=== PATIENT | male | born 1975 | race Caucasian/White ===

== ENCOUNTER 2018-06-07 09:45 | Inpatient (IN) | payer OTHER ==
[2018-06-07 10:15] VITALS: BMI 27.2
--- NOTE | 2018-06-07 10:55 | HP ---
CIWA Score Nausea/Vomitin Muscle Tremors: 2 Anxiety: 2 Agitation: 2 Paroxysmal Sweats: 1-Minimal Palms Moist Orientation: 0-Oriented Tacttile Disturbances: 1-Very Mild Itch/Numbness Auditory Disturbances: 1-Very Mild Visual Disturbances: 0-None Headache: 2-Mild CIWA-Ar Total Score: 13 - Admission Criteria [facility] Guidelines: Admission for Medically Managed Detox: Requires at least one of the followin. CIWA greater than 12 2. Seizures within the past 24 hours 3. Delirium tremens within the past 24 hours 4. Hallucinations within the past 24 hours 5. Acute intervention needed for co occurring medical disorder 6. Acute intervention needed for co occurring psychiatric disorder 7. Severe withdrawal that cannot be handled at a lower level of care (continued vomiting, continued diarrhea, abnormal vital signs) requiring intravenous medication and/or fluids 8. Patient presents the following: CIWA greater than 12 Admission Criteria Met: Admission criteria met Admission ROS [facility] - HPI Chief Complaint: i need help to stop drinking alcohol,xanax,cocaine,marijuana and crystal meth Allergies/Adverse Reactions: Allergies Allergy/AdvReac Type Severity Reaction Status Date / Time No Known Allergies Allergy Verified 06/07/18 11:16 History of Present Illness: this 43 years old male with alcohol,xanax,cocaine,marijuana,crystal meth dependence,seeking detox,withdrawal symptom,last treatment [facility] seen in [facility] last night syncope asthma nicotine dependence longest period of sobriety 5 months paln to go to rehab after detox Exam Limitations: No Limitations - Ebola screening Have you traveled outside of the country in the last 21 days: No (N) Have you had contact with anyone from an Ebola affected area: No Have you been sick,other than usual withdrawal symptoms: No Do you have a fever: No - Review of Systems Constitutional: Loss of Appetite, Malaise, Night Sweats, Changes in sleep, Weakness, Unintentional Wgt. Loss EENT: reports: Nose Congestion Respiratory: reports: No Symptoms reported, Other (asthm aon albuterol inhaler) Cardiac: reports: No Symptoms Reported GI: reports: Nausea, Poor Appetite, Indigestion, Abdominal cramping : reports: No Symptoms Reported Musculoskeletal: reports: Back Pain, Muscle Pain Integumentary: reports: Dryness Neuro: reports: Headache, Tremors Endocrine: reports: No Symptoms Reported Hematology: reports: No Symptoms Reported Psychiatric: reports: No Sypmtoms Reported, Judgement Intact, Mood/Affect Appropiate, Orientated x3 Patient History - Patient Medical History Hx Anemia: No Hx Asthma: Yes (on albuterol inhaler) Hx Chronic Obstructive Pulmonary Disease (COPD): No Hx Cancer: No Hx Cardiac Disorders: No Hx Congestive Heart Failure: No Hx Hypertension: No Hx Hypercholesterolemia: No Hx Pacemaker: No HX Cerebrovascular Accident: No Hx Seizures: No Hx Dementia: No Hx Diabetes: No Hx Gastrointestinal Disorders: No Hx Liver Disease: No Hx Genitourinary Disorders: No Hx Sexually Transmitted Disorders: No Hx Renal Disease (ESRD): No Hx Thyroid Disease: No Hx Human Immunodeficiency Virus (HIV): No (last 2017 negative) Hx Hepatitis C: No Hx Depression: No Hx Suicide Attempt: No Hx Bipolar Disorder: No Hx Schizophrenia: No - Patient Surgical History Past Surgical History: Yes - PPD History Previous Implant?: Yes Documented Results: Negative w/o proof Implanted On Prior [facility] Admission?: No PPD to be Administered?: Yes - Smoking Cessation Smoking history: Current every day smoker Have you smoked in the past 12 months: Yes Cigars Per Day: 20 Hx Chewing Tobacco Use: No Initiated information on smoking cessation: Yes 'Breaking Loose' booklet given: 06/07/18 - Substance & Tx. History Hx Alcohol Use: Yes Hx Substance Use: Yes Substance Use Type: Alcohol, Cocaine, Marijuana, Tranquilizers Hx Substance Use Treatment: Yes (rehab 2015 [facility]) - Substances Abused Alcohol Route: Oral Frequency: Daily Amount used: 1 pint of vodka,bacardi/6 packs of 12 ozs of beer Age of first use: 12 Date of Last Use: 06/06/18 Alprazolam (Xanax) Route: Oral Frequency: Daily Amount used: 6 mgs Age of first use: 33 Date of Last Use: 06/04/18 Cocaine Route: Smoking Frequency: 3-6 times per week Amount used: 100$ Age of first use: 19 Date of Last Use: 06/06/18 Marijuana/Hashish Route: Smoking Frequency: Daily Amount used: 40$ Age of first use: 23 Date of Last Use: 06/06/18 crstal meth Route: Smoking Frequency: Daily Amount used: 90$ Age of first use: 41 Date of Last Use: 06/06/18 Family Disease History - Family Disease History Family History: Denies Admission Physical Exam [facility] - Vital Signs Vital Signs: Vital Signs - 24 hr 06/07/18 10:06 Temperature 99.2 F Pulse Rate 93 H Respiratory 20 Rate Blood Pressure 108/80 - Physical General Appearance: Yes: Moderate Distress, Tremorous, Irritable, Sweating, Anxious HEENTM: Yes: Normal ENT Inspection, JOHN PAUL, Pharynx Normal Respiratory: Yes: Lungs Clear, Normal Breath Sounds, No Respiratory Distress Neck: Yes: Within Normal Limits, Supple, Trachea in good position Breast: Yes: Within Normal Limits Cardiology: Yes: Within Normal Limits, Regular Rhythm, Regular Rate, S1, S2 Abdominal: Yes: Normal Bowel Sounds, Non Tender, Flat, Soft, Organomegaly Genitourinary: Yes: Within Normal Limits Back: Yes: Muscle Spasm Musculoskeletal: Yes: Back pain, Muscle Pain Extremities: Yes: Within Normal Limits, Tremors Neurological: Yes: outsewer II-XII NML intact, Fully Oriented, Alert, Motor Strength 5/5 Integumentary: Yes: Dry Lymphatic: Yes: Within Normal Limits - Diagnostic (1) Alcohol dependence with uncomplicated withdrawal Current Visit: Yes Status: Acute (2) Uncomplicated sedative, hypnotic or anxiolytic withdrawal Current Visit: Yes Status: Acute (3) Cocaine dependence Current Visit: Yes Status: Chronic (4) Cannabis dependence Current Visit: Yes Status: Chronic (5) Methamphetamine dependence Current Visit: Yes Status: Chronic (6) Asthma Current Visit: Yes Status: Acute (7) Syncope Current Visit: Yes Status: Acute (8) Weight loss Current Visit: Yes Status: Acute (9) Insomnia secondary to depression with anxiety Current Visit: Yes Status: Acute Cleared for Admission [facility] - Detox or Rehab [facility] Level of Care: Medically Managed Detox Regimen/Protocol: Valium [facility] Breath Alcohol Content Breath Alcohol Content: 0 Urine Drug Screen - Results Drug Screen Negative: No Urine Drug Screen Results: THC-Marijuana, KIMBERLY-Cocaine, AMP-Amphetamines, MET- Methamphetamine, BZO-Benzodiazepines
[2018-06-07] MEDS ORDERED: MAGNESIUM HYDROX 2400MG/30ML ORAL SUSPENSION 30 ML CUP PO PRN (11:14)
[2018-06-07] MEDS ORDERED: MAG HYDROX/AL HYDROX/SIMETH 30 ML UNIT-DOSE CUP PO PRN (11:14)
[2018-06-07] MEDS ORDERED: ACETAMINOPHEN 325 MG TABLET (FP) PO PRN (11:14)
[2018-06-07] MEDS ORDERED: guaiFENesin/D-METHORPHAN HB 10 ML UNIT-DOSE CUPS PO PRN (11:14)
[2018-06-07] MEDS ORDERED: P-EPHED 60MG/TRIPROLIDI 2.5MG TABLET PO PRN (11:14)
[2018-06-07] MEDS ORDERED: MENTHOL/PHENOL 1 EACH UD MM PRN (11:14)
[2018-06-07] MEDS ORDERED: MAGNESIUM CITRATE 300 ML BOTTLE PO PRN (11:14)
[2018-06-07] MEDS ORDERED: NICOTINE POLACRILEX 2 MG GUM BUC PRN (11:14)
[2018-06-07] MEDS ORDERED: LOPERAMIDE HCL 2 MG CAPSULE PO PRN (11:14)
[2018-06-07] MEDS ORDERED: hydrOXYzine PAMOATE 50 MG CAPSULE (FP) PO PRN (11:14)
[2018-06-07] MEDS ORDERED: IBUPROFEN 400 MG TABLET (FP) PO PRN (11:14)
[2018-06-07] MEDS ORDERED: ALBUTEROL SO4 8 GM HFA INHALER IH PRN (11:51)
[2018-06-07] MEDS ORDERED: diazePAM 5 MG TABLET PO ONE (12:10)
[2018-06-07] MEDS: NICOTINE 21 MG/24 HOURS TOPICAL PATCH TD SCH (12:26)
--- NOTE | 2018-06-07 14:33 | EKG ---
Test Reason : Blood Pressure : / mmHG Vent. Rate : 095 BPM Atrial Rate : 095 BPM P-R Int : 184 ms QRS Dur : 096 ms QT Int : 360 ms P-R-T Axes : 078 055 042 degrees QTc Int : 452 ms NORMAL SINUS RHYTHM NORMAL ECG NO PREVIOUS ECGS AVAILABLE Confirmed by Prabhakar Vergara ([id number]) on 06/07/2018 2:32:57 PM Referred By: Confirmed By:Prabhakar Vergara
[2018-06-07] MEDS: diazePAM 5 MG TABLET PO SCH ×2 (15:03→22:22)
[2018-06-07 15:54] LABS: URINE APPEARANCE CLEAR; URINE BILIRUBIN NEGATIVE (<2.0 mg/dL); URINE COLOR DKYELLOW; URINE GLUCOSE (UA) NEGATIVE (NEGATIVE); URINE KETONE NEGATIVE (NEGATIVE); URINE LEUK ESTERASE NEGATIVE (NEGATIVE); URINE NITRITE NEGATIVE (NEGATIVE); URINE PROTEIN NEGATIVE (NEGATIVE); URINE UROBILINOGEN 4.0 E.U/dl mg/dL (0.2-1.0)
[2018-06-07 16:16] LABS: URINE MUCUS RARE
[2018-06-07] MEDS: diazePAM 5 MG TABLET PO PRN (16:49)
--- NOTE | 2018-06-07 18:38 | CONSULT ---
[facility] Psychiatric Consult - Data Date of interview: 06/07/18 Admission source: [facility] Identifying data: First admission to [facility] for this 43 y/o male seeking detoxification treatment, on , for alcohol, cannabis, cocaine and xanax dependence. Patient is , a father of three, homeless, unemployed and deprived of income. Substance Abuse History: Confirmed by patient in this interview. Details in current [facility] report : Smoking history: Current every day smoker. Have you smoked in the past 12 months: Yes. Cigars Per Day: 20. Hx Chewing Tobacco Use : No. Initiated information on smoking cessation: Yes. 'Breaking Loose' booklet given: 06/07/18. - Substance & Tx. History. Hx Alcohol Use: Yes. Hx Substance Use: Yes. Substance Use Type: Alcohol, Cocaine, Marijuana, Tranquilizers. Hx Substance Use Treatment: Yes (rehab 2015 [facility]). - Substances Abused. Alcohol. Route: Oral. Frequency: Daily. Amount used: 1 pint of vodka,bacardi/6 packs of 12 ozs of beer. Age of first use: 12. Date of Last Use: 06/06/18. Alprazolam (Xanax). Route: Oral. Frequency: Daily. Amount used: 6 mgs. Age of first use: 33. Date of Last Use: 06/04/18. Cocaine. Route: Smoking. Frequency: 3-6 times per week. Amount used: 100$. Age of first use: 19. Date of Last Use: 06/06/18. Marijuana/Hashish. Route: Smoking. Frequency: Daily. Amount used: 40$. Age of first use: 23. Date of Last Use: 06/06/18. crstal meth. Route: Smoking. Frequency: Daily. Amount used: 90$. Age of first use: 41. Date of Last Use: 06/06/18 Medical History: Bronchial asthma. Psychiatric History: Patient denies. Physical/Sexual Abuse/Trauma History: Patient denies. Additional Comment: Urine Drug Screen Results: THC-Marijuana, KIMBERLY-Cocaine, AMP- Amphetamines, MET-Methamphetamine, BZO-Benzodiazepines. Noted. Mental Status Exam - Mental Status Exam Alert and Oriented to: Time, Place, Person Cognitive Function: Good Patient Appearance: Well Groomed Mood: Nervous, Withdrawn Affect: Mood Congruent, Constricted Patient Behavior: Fatigued, Appropriate, Cooperative Speech Pattern: Clear Voice Loudness: Normal Thought Process: Intact, Goal Oriented Thought Disorder: Not Present Hallucinations: Denies Suicidal Ideation: Denies Homicidal Ideation: Denies Insight/Judgement: Poor Sleep: Well Appetite: Good Muscle strength/Tone: Normal Gait/Station: Normal Psychiatric Findings - Problem List ([place] 1, 2,3) (1) Alcohol dependence with uncomplicated withdrawal Current Visit: Yes Status: Acute (2) Uncomplicated sedative, hypnotic or anxiolytic withdrawal Current Visit: Yes Status: Acute (3) Cannabis dependence Current Visit: Yes Status: Chronic (4) Methamphetamine dependence Current Visit: Yes Status: Chronic (5) Cocaine dependence Current Visit: Yes Status: Chronic - Initial Treatment Plan Initial Treatment Plan: Psychoeducation. Sleep hygiene. Detoxification. AA meetings. Relapse prevention discussed with patient. Group + supportive therapy. Observation.
[2018-06-07] MEDS: THIAMINE HCL 100 MG TABLET (FP) PO SCH (22:22)
[2018-06-07] MEDS: MELATONIN 5 MG TABLETS PO PRN (22:23)
[2018-06-08] MEDS: diazePAM 5 MG TABLET PO SCH ×3 (05:37→22:35)
[2018-06-08] MEDS: PRENATAL VITAMINS W/ FOLIC ACID TABLET (FP) PO SCH (10:20)
[2018-06-08] MEDS: NICOTINE 21 MG/24 HOURS TOPICAL PATCH TD SCH (10:20)
[2018-06-08] MEDS: diazePAM 5 MG TABLET PO PRN ×2 (10:20→16:27)
[2018-06-08 10:55] LABS: ALBUMIN 3.7 g/dl (3.4-5.0); ALK PHOS 91 U/L (45-117); ANION GAP 6 MMOL/L (8-16); BILIRUBIN,TOTAL 0.5 mg/dL (0.2-1); BLOOD UREA NITROGEN 19 mg/dL (7-18); CALCIUM 8.8 mg/dL (8.5-10.1); CHLORIDE 99 mmol/L (98-107); CO2 28 mmol/L (21-32); CREATININE 1.2 mg/dL (0.55-1.3); GLUCOSE,RANDOM 104 mg/dL (74-106); POTASSIUM 4.3 mmol/L (3.5-5.1); SGOT/AST 77 U/L (15-37); SGPT/ALT 54 U/L (13-61); SODIUM 133 mmol/L (136-145); TOT PROT 7.3 g/dl (6.4-8.2)
[2018-06-08 11:04] LABS: HEMATOCRIT 42.8 % (35.4-49); HEMOGLOBIN 13.6 GM/dL (11.7-16.9); MCH 25.7 pg (25.7-33.7); MCHC 31.8 g/dl (32.0-35.9); MEAN CELL VOLUME 80.9 fl (80-96); MEAN PLT VOLUME 9.1 fl (7.5-11.1); PLATELET COUNT 254 K/MM3 (134-434); RBC 5.29 M/mm3 (4.00-5.60); WHITE BLOOD COUNT 6.3 K/mm3 (4.0-10.0)
[2018-06-08 12:16] LABS: RPR REACTIVE 1:1 (NONREACTIVE)
[2018-06-08 14:36] LABS: TREPONEMA ANTIBODY REACTIVE (NONREACTIVE)
--- NOTE | 2018-06-08 15:43 | PN ---
S CIWA - CIWA Score Nausea/Vomitin Muscle Tremors: 4-Moderate,w/Arms Extend Anxiety: 4-Mod. Anxious/Guarded Agitation: 4-Moderately Restless Paroxysmal Sweats: 3 Orientation: 0-Oriented Tacttile Disturbances: 0-None Auditory Disturbances: 0-None Visual Disturbances: 0-None Headache: 0-None Present CIWA-Ar Total Score: 17 BHS Progress Note (SOAP) Subjective: Feeling anxious, interrupted sleep. Patient noted with reactive RPR. Patient denies any sores or rashes. As per patient, he was never told that he had syphilis and was never treated for it but he has unprotected sexual intercourse. Patient educated on importance of treatment and to notify all sexual partners so they can be treated. Objective: 06/08/18 15:41 Last Vital Signs Temp Pulse Resp BP Pulse Ox 97.1 F L 87 18 104/60 06/08/18 13:29 06/08/18 13:29 06/08/18 13:29 06/08/18 13:29 Laboratory Tests 06/07/18 06/07/18 06/08/18 10:54 11:50 05:45 WBC 6.3 RBC 5.29 Hgb 13.6 Hct 42.8 MCV 80.9 MCH 25.7 MCHC 31.8 L RDW 16.0 H Plt Count 254 MPV 9.1 Sodium Potassium Chloride Carbon Dioxide Anion Gap BUN Creatinine Creat Clearance w eGFR Random Glucose Calcium Total Bilirubin AST ALT Alkaline Phosphatase Total Protein Albumin Urine Color Dkyellow Urine Appearance Clear Urine pH 6.0 Ur Specific [place] 1.028 Urine Protein Negative Urine Glucose (UA) Negative Urine Ketones Negative Urine Blood 3+ H Urine Nitrite Negative Urine Bilirubin Negative Urine Urobilinogen 4.0 e.u/dl Ur Leukocyte Esterase Negative Urine WBC (Auto) 1 Urine RBC (Auto) 37 Urine Mucus Rare RPR Titer T.pallidum Ab (A) HIV 1&2 Antibody Screen Negative HIV P24 Antigen Negative 06/08/18 06/08/18 05:45 05:45 WBC RBC Hgb Hct MCV MCH MCHC RDW Plt Count MPV Sodium 133 L Potassium 4.3 Chloride 99 Carbon Dioxide 28 Anion Gap 6 L BUN 19 H Creatinine 1.2 Creat Clearance w eGFR > 60 Random Glucose 104 Calcium 8.8 Total Bilirubin 0.5 AST 77 H ALT 54 Alkaline Phosphatase 91 Total Protein 7.3 Albumin 3.7 Urine Color Urine Appearance Urine pH Ur Specific [place] Urine Protein Urine Glucose (UA) Urine Ketones Urine Blood Urine Nitrite Urine Bilirubin Urine Urobilinogen Ur Leukocyte Esterase Urine WBC (Auto) Urine RBC (Auto) Urine Mucus RPR Titer Reactive 1:1 H T.pallidum Ab (MHA) Reactive HIV 1&2 Antibody Screen HIV P24 Antigen Labs reviewed: RPR reactive, TPPA reactive 1:1, UA shows microscopic hematuria Assessment: 06/08/18 15:43 Withdrawal symptoms 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
[2018-06-08] MEDS ORDERED: PENICILLIN G BENZATHINE 2,400,000 UNIT/4 ML PFS IM ONE (17:00)
[2018-06-08] MEDS: THIAMINE HCL 100 MG TABLET (FP) PO SCH (22:35)
[2018-06-08] MEDS: MELATONIN 5 MG TABLETS PO PRN (22:35)
[2018-06-09 10:32] LABS: URINE APPEARANCE CLEAR; URINE BILIRUBIN NEGATIVE (<2.0 mg/dL); URINE COLOR LTYELLOW; URINE GLUCOSE (UA) NEGATIVE (NEGATIVE); URINE KETONE NEGATIVE (NEGATIVE); URINE LEUK ESTERASE NEGATIVE (NEGATIVE); URINE NITRITE NEGATIVE (NEGATIVE); URINE PROTEIN NEGATIVE (NEGATIVE); URINE UROBILINOGEN NEGATIVE mg/dL (0.2-1.0)
[2018-06-09] MEDS: NICOTINE 21 MG/24 HOURS TOPICAL PATCH TD SCH (10:33)
[2018-06-09] MEDS: diazePAM 5 MG TABLET PO SCH ×2 (10:33→22:06)
[2018-06-09] MEDS: PRENATAL VITAMINS W/ FOLIC ACID TABLET (FP) PO SCH (10:33)
[2018-06-09 10:41] LABS: EPI CELLS RARE /HPF (FEW); URINE MUCUS RARE
--- NOTE | 2018-06-09 15:17 | PN ---
[facility] CIWA - CIWA Score Nausea/Vomitin-No Nausea/No Vomiting Muscle Tremors: None Anxiety: 4-Mod. Anxious/Guarded Agitation: 2 Paroxysmal Sweats: No Perspiration Orientation: 0-Oriented Tacttile Disturbances: 2-Mild Itch/Numbness/Burn Auditory Disturbances: 1-Very Mild Visual Disturbances: 2-Mild Sensitivity Headache: 0-None Present CIWA-Ar Total Score: 11 S Progress Note (SOAP) Subjective: Body Aches, Anxious. Objective: PATIENT A & O X 3, OBSERVED AMBULATING ON UNIT. NO ACUTE DISTRESS. 06/09/18 15:15 Vital Signs Temperature 97.4 F L 06/09/18 13:33 Pulse Rate 72 06/09/18 13:33 Respiratory Rate 18 06/09/18 13:33 Blood Pressure 120/74 06/09/18 13:33 O2 Sat by Pulse Oximetry (%) Laboratory Tests 06/07/18 06/07/18 06/08/18 10:54 11:50 05:45 WBC 6.3 RBC 5.29 Hgb 13.6 Hct 42.8 MCV 80.9 MCH 25.7 MCHC 31.8 L RDW 16.0 H Plt Count 254 MPV 9.1 Sodium Potassium Chloride Carbon Dioxide Anion Gap BUN Creatinine Creat Clearance w eGFR Random Glucose Calcium Total Bilirubin AST ALT Alkaline Phosphatase Total Protein Albumin Urine Color Dkyellow Urine Appearance Clear Urine pH 6.0 Ur Specific [place] 1.028 Urine Protein Negative Urine Glucose (UA) Negative Urine Ketones Negative Urine Blood 3+ H Urine Nitrite Negative Urine Bilirubin Negative Urine Urobilinogen 4.0 e.u/dl Ur Leukocyte Esterase Negative Urine WBC (Auto) 1 Urine RBC (Auto) 37 Ur Epithelial Cells Urine Mucus Rare RPR Titer T.pallidum Ab (A) HIV 1&2 Antibody Screen Negative HIV P24 Antigen Negative 06/08/18 06/08/18 06/09/18 05:45 05:45 07:10 WBC RBC Hgb Hct MCV MCH MCHC RDW Plt Count MPV Sodium 133 L Potassium 4.3 Chloride 99 Carbon Dioxide 28 Anion Gap 6 L BUN 19 H Creatinine 1.2 Creat Clearance w eGFR > 60 Random Glucose 104 Calcium 8.8 Total Bilirubin 0.5 AST 77 H ALT 54 Alkaline Phosphatase 91 Total Protein 7.3 Albumin 3.7 Urine Color Ltyellow Urine Appearance Clear Urine pH 6.0 Ur Specific [place] 1.012 Urine Protein Negative Urine Glucose (UA) Negative Urine Ketones Negative Urine Blood 2+ H Urine Nitrite Negative Urine Bilirubin Negative Urine Urobilinogen Negative Ur Leukocyte Esterase Negative Urine WBC (Auto) 2 Urine RBC (Auto) 11 Ur Epithelial Cells Rare Urine Mucus Rare RPR Titer Reactive 1:1 H T.pallidum Ab (MHA) Reactive HIV 1&2 Antibody Screen HIV P24 Antigen LABS NOTED. RESULTS OF REPEAT UA NOTED. URINE BLOOD AND RBC LEVELS NOTED TO BE DECREASING IN COMPARISON TO PREVIOUS UA. 06/09/18 15:20 Assessment: 06/09/18 15:15 WITHDRAWAL SYMPTOMS. Plan: CONTINUE DETOX.
[2018-06-09] MEDS: diazePAM 5 MG TABLET PO PRN (15:41)
[2018-06-09] MEDS: MELATONIN 5 MG TABLETS PO PRN (22:06)
[2018-06-09] MEDS: THIAMINE HCL 100 MG TABLET (FP) PO SCH (22:06)
[2018-06-10] MEDS: PRENATAL VITAMINS W/ FOLIC ACID TABLET (FP) PO SCH (10:21)
[2018-06-10] MEDS: diazePAM 5 MG TABLET PO SCH ×2 (10:21→22:17)
[2018-06-10] MEDS: NICOTINE 21 MG/24 HOURS TOPICAL PATCH TD SCH (10:21)
--- NOTE | 2018-06-10 11:17 | PN ---
BHS Progress Note (SOAP) Subjective: feeling better sleep better at night less sweat no tremor Objective: 06/10/18 11:15 Vital Signs Temperature 98.3 F 06/10/18 09:15 Pulse Rate 84 06/10/18 09:15 Respiratory Rate 18 06/10/18 09:15 Blood Pressure 111/66 06/10/18 09:15 O2 Sat by Pulse Oximetry (%) Laboratory Last Values WBC 6.3 K/mm3 (4.0-10.0) 06/08/18 05:45 RBC 5.29 M/mm3 (4.00-5.60) 06/08/18 05:45 Hgb 13.6 GM/dL (11.7-16.9) 06/08/18 05:45 Hct 42.8 % (35.4-49) 06/08/18 05:45 MCV 80.9 fl (80-96) 06/08/18 05:45 MCH 25.7 pg (25.7-33.7) 06/08/18 05:45 MCHC 31.8 g/dl (32.0-35.9) L 06/08/18 05:45 RDW 16.0 % (11.9-15.9) H 06/08/18 05:45 Plt Count 254 K/MM3 (134-434) 06/08/18 05:45 MPV 9.1 fl (7.5-11.1) 06/08/18 05:45 Sodium 133 mmol/L (136-145) L 06/08/18 05:45 Potassium 4.3 mmol/L (3.5-5.1) 06/08/18 05:45 Chloride 99 mmol/L (98-107) 06/08/18 05:45 Carbon Dioxide 28 mmol/L (21-32) 06/08/18 05:45 Anion Gap 6 MMOL/L (8-16) L 06/08/18 05:45 BUN 19 mg/dL (7-18) H 06/08/18 05:45 Creatinine 1.2 mg/dL (0.55-1.3) 06/08/18 05:45 Creat Clearance w eGFR > 60 (>60) 06/08/18 05:45 Random Glucose 104 mg/dL (74-106) 06/08/18 05:45 Calcium 8.8 mg/dL (8.5-10.1) 06/08/18 05:45 Total Bilirubin 0.5 mg/dL (0.2-1) 06/08/18 05:45 AST 77 U/L (15-37) H 06/08/18 05:45 ALT 54 U/L (13-61) 06/08/18 05:45 Alkaline Phosphatase 91 U/L (45-117) 06/08/18 05:45 Total Protein 7.3 g/dl (6.4-8.2) 06/08/18 05:45 Albumin 3.7 g/dl (3.4-5.0) 06/08/18 05:45 Urine Color Ltyellow 06/09/18 07:10 Urine Appearance Clear 06/09/18 07:10 Urine pH 6.0 (5.0-8.0) 06/09/18 07:10 Ur Specific [place] 1.012 (1.010-1.035) 06/09/18 07:10 Urine Protein Negative (NEGATIVE) 06/09/18 07:10 Urine Glucose (UA) Negative (NEGATIVE) 06/09/18 07:10 Urine Ketones Negative (NEGATIVE) 06/09/18 07:10 Urine Blood 2+ (NEGATIVE) H 06/09/18 07:10 Urine Nitrite Negative (NEGATIVE) 06/09/18 07:10 Urine Bilirubin Negative (<2.0 mg/dL) 06/09/18 07:10 Urine Urobilinogen Negative mg/dL (0.2-1.0) 06/09/18 07:10 Ur Leukocyte Esterase Negative (NEGATIVE) 06/09/18 07:10 Urine WBC (Auto) 2 /hpf (3-5) 06/09/18 07:10 Urine RBC (Auto) 11 /hpf (0-3) 06/09/18 07:10 Ur Epithelial Cells Rare /HPF (FEW) 06/09/18 07:10 Urine Mucus Rare 06/09/18 07:10 RPR Titer Reactive 1:1 (NONREACTIVE) H 06/08/18 05:45 T.pallidum Ab (MHA) Reactive (NONREACTIVE) 06/08/18 05:45 HIV 1&2 Antibody Screen Negative 06/07/18 11:50 HIV P24 Antigen Negative 06/07/18 11:50 lab noted syphilis treated wtih Pen IM Assessment: 06/10/18 11:16 mild withdrawal sx 06/10/18 11:17 syphilis Plan: medically supervised detox
[2018-06-10] MEDS: THIAMINE HCL 100 MG TABLET (FP) PO SCH (22:17)
[2018-06-10] MEDS: MELATONIN 5 MG TABLETS PO PRN (22:17)
[2018-06-11 06:24] VITALS: BP 131/78; PULSE 77; TEMP 97.3
[2018-06-11] MEDS ORDERED: diazePAM 5 MG TABLET PO SCH (10:00)
--- NOTE | 2018-06-11 13:24 | DS ---
[facility] Detox Discharge Summary Admission Date: 06/07/18 Discharge Date: 06/11/18 - History Present History: Alcohol Dependence, Sedative Dependence Additional Comments: PATIENT TOLERATED DETOX REGIMEN WITHOUT ADVERSE EVENT. PATIENT CLINICALLY STABLE AND DENIES SI/HI. PATIENT ENCOURAGED TO ATTEND GROUP MEETINGS TO PREVENT RELAPSE AND TO FOLLOW UP WITH PCP WITHIN ONE WEEK OF D/C. PATIENT GIVEN D/C INSTRUCTIONS BY STAFF. - Physical Exam Results Vital Signs: Vital Signs Temperature 97.3 F L 06/11/18 06:23 Pulse Rate 77 06/11/18 06:23 Respiratory Rate 18 06/11/18 06:23 Blood Pressure 131/78 06/11/18 06:23 O2 Sat by Pulse Oximetry (%) - Treatment Hospital Course: Detox Protocol Followed, Detoxed Safely, Responded well, Discharged Condition Good - Medication Discharge Medications: Ambulatory Orders Albuterol Sulfate Inhaler - [Ventolin HFA Inhaler -] 2 inh PO Q4H PRN #1 inhaler 06/10/18 - AMA Did Patient Leave Against Medical Advice: No
== END 2018-06-11 08:42 | disposition home or self-care (01) | DRG 774 ==
LOC: YASAS 09:45 → Y3N 11:15
PROC: HZ2ZZZZ Detoxification Services for Substance Abuse Treatment (ICD-10-PCS; principal; 2018-06-07)
DX: F10.230 Alcohol dependence with withdrawal, uncomplicated (principal); F13.230 Sedative, hypnotic or anxiolytic dependence with withdrawal, uncomplicated; F14.20 Cocaine dependence, uncomplicated; F12.20 Cannabis dependence, uncomplicated; F15.20 Other stimulant dependence, uncomplicated; F51.05 Insomnia due to other mental disorder; J45.20 Mild intermittent asthma, uncomplicated; A51.2 Primary syphilis of other sites; R31.21 Asymptomatic microscopic hematuria
CPT/HCPCS: 36415; 80053; 81003; 81015; 85027; 86593; 86780; 87389; 93005; 93010